=== PATIENT | female | born 1980 | race American Indian/Alaskan Native ===

== ENCOUNTER 2017-12-02 11:14 | Emergency (ER) | payer MEDICAID, OTHER ==
[2017-12-02 11:41] VITALS: BMI 20.1
[2017-12-02] MEDS ORDERED: TDAP Vaccine 0.5 mL Syr IM ONE (11:42)
[2017-12-02 11:46] VITALS: RESP 18
--- NOTE | 2017-12-02 12:06 | ED PDOC ---
Arrival/HPI - General Time Seen by Provider: 12/02/17 11:38 Historian: Patient - History of Present Illness Narrative History of Present Illness (Text): 12/02/17 12:03 37 year old female, with no significant past medical history, presents to the emergency department s/p fall this morning. Patient states she was walking and slipped on one of her dogs pee pads, where she inverted her right ankle. Patient notes she was holding a bag that scraped under her chin. Patient denies any fever, chills, chest pain, shortness of breath, back pain, neck pain, headache, dizziness, or any other complaints. Time/Duration: 1-3 hours Symptom Onset: Sudden Symptom Course: Unchanged Activities at Onset: Light Context: Home Past Medical History - Provider Review Nursing Documentation Reviewed: Yes - Infectious Disease Hx of Infectious Diseases: None - Tetanus Immunization Tetanus Immunization: Unknown - Psychiatric Hx Substance Use: No Family/Social History - Physician Review Nursing Documentation Reviewed: Yes Family/Social History: Unknown Family HX Smoking Status: Current Some Days Smoker Hx Alcohol Use: Yes Hx Substance Use: No Allergies/Home Meds Allergies/Adverse Reactions: Allergies No Known Allergies Allergy (Verified 10/17/13 04:48) Review of Systems - Physician Review All systems were reviewed & negative as marked: Yes - Review of Systems Constitutional: Normal Eyes: Normal ENT: Normal Respiratory: Normal. absent: SOB, Cough Cardiovascular: Normal. absent: Chest Pain Gastrointestinal: Normal. absent: Abdominal Pain, Diarrhea, Nausea, Vomiting Genitourinary Female: Normal. absent: Dysuria, Frequency, Hematuria Musculoskeletal: Other (Right ankle pain). absent: Back Pain, Neck Pain Skin: Normal. absent: Rash Neurological: Normal. absent: Headache Endocrine: Normal Hemo/Lymphatic: Normal Psychiatric: Normal Physical Exam Vital Signs Reviewed: Yes Vital Signs Temp Pulse Resp BP Pulse Ox 12/02/17 11:45 98.3 F 72 18 121/76 98 Temperature: Afebrile Blood Pressure: Normal Pulse: Regular Respiratory Rate: Normal Appearance: Positive for: Well-Appearing, Non-Toxic, Comfortable Pain Distress: None Mental Status: Positive for: Alert and Oriented X 3 - Systems Exam Head: Present: Atraumatic, Normocephalic Pupils: Present: PERRL Extroacular Muscles: Present: EOMI Conjunctiva: Present: Normal Mouth: Present: Moist Mucous Membranes Neck: Present: Normal Range of Motion Respiratory/Chest: Present: Clear to Auscultation, Good Air Exchange. No: Respiratory Distress, Accessory Muscle Use Cardiovascular: Present: Regular Rate and Rhythm, Normal S1, S2. No: Murmurs Abdomen: No: Tenderness, Distention, Peritoneal Signs Back: Present: Normal Inspection Upper Extremity: Present: Normal Inspection. No: Cyanosis, Edema Lower Extremity: Present: NORMAL PULSES, Tenderness (Rt ankle), Swelling (rigth ankle), Other (no bony hip tenderness. Normal ROM at hip and knee.). No: Edema , CALF TENDERNESS Neurological: Present: GCS=15, CN II-XII Intact, Speech Normal Skin: Present: Warm, Dry, Abrasion (under chin). No: Rashes Psychiatric: Present: Alert, Oriented x 3, Normal Insight, Normal Concentration Medical Decision Making ED Course and Treatment: 12/02/17 12:08 Impression: 37 year old female presents to the emergency department s/p fall. Plan: -- Ibuprofen -- Xray Ankle -- TDAP Vaccine -- Reassess and disposition Progress Notes: ' 12/02/17 13:07 R ankle xray: FINDINGS: BONES: Normal. No fracture. JOINTS: Normal. No osteoarthritis. Ankle mortise maintained. Talar dome intact SOFT TISSUES: Normal. OTHER FINDINGS: None. IMPRESSION: Negative study Patient placed in maria r wrap - RAD Interpretation Radiology Orders: 12/02/17 11:42 ANKLE RIGHT 3 VIEWS ROUTINE [RAD] Stat - Medication Orders Current Medication Orders: Discontinued Medications Ibuprofen (Motrin Tab) 600 mg PO STAT STA Stop: 12/02/17 11:43 Last Admin: 12/02/17 12:15 Dose: 600 mg MAR Pain/Vitals Document 12/02/17 12:15 MN (Rec: 12/02/17 12:15 MN [id number]) Pain Reassessment Is This A Pain ReAssessment? No Sleep Is patient sleeping during reassessment? No Presence of Pain Presence of Pain Yes Location Left, Right or Bilateral Right Pain Location Body Site Ankle Description Constant Intensity 9 Scale Used Numeric Tetanus/Reduced Diphtheria/Acell Pertussis (Boostrix Vaccine Inj) 0.5 ml IM .ONCE ONE Stop: 12/02/17 11:43 Last Admin: 12/02/17 12:15 Dose: 0.5 ml Immunization Registry Document 12/02/17 12:15 MN (Rec: 12/02/17 12:15 MN [id number]) Immunization Registry Consent Date 12/02/17 - Scribe Statement The provider has reviewed the documentation as recorded by the Clarisaibadi Collins All medical record entries made by the Scribe were at my direction and personally dictated by me. I have reviewed the chart and agree that the record accurately reflects my personal performance of the history, physical exam, medical decision making, and the department course for this patient. I have also personally directed, reviewed, and agree with the discharge instructions and disposition. Disposition/Present on Arrival - Present on Arrival Any Indicators Present on Arrival: No History of DVT/PE: No History of Uncontrolled Diabetes: No Urinary Catheter: No History Surgical Site Infection Following: None - Disposition Have Diagnosis and Disposition been Completed?: Yes Diagnosis: Ankle sprain Disposition: HOME/ ROUTINE Disposition Time: 13:02 Patient Plan: Discharge Patient Problems: Current Active Problems Problem Status Onset Ankle sprain Acute Condition: GOOD Discharge Instructions (ExitCare): Ankle Sprain Additional Instructions: Follow-up with PMD within 2 days. Return to ED if condition worsens. Rest, ice , compress and elevate.
--- NOTE | 2017-12-02 13:00 | RAD ---
PROCEDURE: Right Ankle Radiographs. HISTORY: R ankle pain COMPARISON: None FINDINGS: BONES: Normal. No fracture. JOINTS: Normal. No osteoarthritis. Ankle mortise maintained. Talar dome intact SOFT TISSUES: Normal. OTHER FINDINGS: None. IMPRESSION: Negative study
[2017-12-02 13:39] VITALS: BP 115/72; PULSE 82; TEMP 98.2; O2SAT 100
== END 2017-12-02 13:39 | disposition home or self-care (01) ==
LOC: ED 11:14
DX: S93.401A Sprain of unspecified ligament of right ankle, initial encounter (principal); W01.0XXA Fall on same level from slipping, tripping and stumbling without subsequent striking against object, initial encounter; Y92.009 Unspecified place in unspecified non-institutional (private) residence as the place of occurrence of the external cause; Z23 Encounter for immunization